=== PATIENT | male | born 1950 | race Caucasian/White ===

== ENCOUNTER → 2016-09-01 | Outpatient (CLI) | payer MEDICARE | LOC: GMAM 17:30 | PROVIDERS: ATTEND Family Medicine | DX: E53.8 Deficiency of other specified B group vitamins (principal); E55.9 Vitamin D deficiency, unspecified; E29.1 Testicular hypofunction; M10.9 Gout, unspecified; R53.83 Other fatigue; Z12.5 Encounter for screening for malignant neoplasm of prostate | CPT/HCPCS: 82306; 82607; 84403; 84550; G0103 ==

== ENCOUNTER → 2016-09-08 | Outpatient (CLI) | payer MEDICARE, OTHER | LOC: SL 21:14 | PROVIDERS: ATTEND Family Medicine | DX: G47.00 Insomnia, unspecified (principal); R06.83 Snoring; E66.9 Obesity, unspecified; I25.9 Chronic ischemic heart disease, unspecified; I10 Essential (primary) hypertension ==

== ENCOUNTER → 2016-10-01 | Outpatient (CLI) | payer MEDICARE, OTHER | END | disposition home or self-care (01) | LOC: SL 20:30 | PROVIDERS: ATTEND Family Medicine | DX: G47.00 Insomnia, unspecified (principal); R06.83 Snoring; I25.9 Chronic ischemic heart disease, unspecified; I10 Essential (primary) hypertension; E66.9 Obesity, unspecified ==

== ENCOUNTER → 2017-09-08 | Outpatient (CLI) | payer MEDICARE, OTHER ==
--- NOTE | 2017-09-08 20:10 | MRI ---
EXAM DESCRIPTION: Lumbar Spine w/o Contrast MRI. CLINICAL HISTORY: SPINAL STENOSIS-LUMBAR COMPARISON: MRI scan lumbar spine 04/28/2016. TECHNIQUE: Multiplanar, multiple standard sequences, non contrast MRI, lumbar spine. FINDINGS: L5-S1: Moderate disc space loss and grade 2 anterolisthesis 1.1 cm. No significant disc bulge posterior to the posterior cortex of S1. Mild canal narrowing. Bilateral moderate foraminal stenosis and impingement of the bilateral L5 nerve roots in the foramina. Bilateral L5 pars spondylolysis with minimal hypertrophy and ligament thickening; no marrow edema abutting the defects. Minimal facet arthrosis and posterior ligament hypertrophy. Modic type II endplate reactive changes. L4-5: Moderate disc space loss posterior. Anterior bulging and endplate ridging. Moderate type II endplate reactive changes and more disc space narrowing to the right of midline. Disc osteophyte complex creating moderate left foraminal narrowing. Trace retrolisthesis. Mild right foraminal narrowing. Minimal posterior ligament hypertrophy bilaterally. Moderate canal narrowing. L3-4 disc desiccation and posterior disc space loss. Moderate flavum ligament hypertrophy and facet arthrosis more on the left. Mild right foraminal narrowing. Moderate left foraminal narrowing. Moderate canal narrowing. Subarticular recess flattening. L2-3: Disc desiccation with anterior bulging. Posterior large Schmorl's node L2 enlarged since the prior study with large surrounding ring of marrow edema. Exterior disc bulge 4 mm. Mild facet and ligament arthrosis and hypertrophy. Mild right foraminal narrowing moderate left foraminal narrowing. Moderate canal narrowing. L1-2: Minimal disc desiccation no bulging. Minimal posterior ligament hypertrophy. Conus terminates at L1. Canal and bilateral foramina are patent. T12-L1: Disc appears physiologic. Posterior elements unremarkable. Canal and foramina are patent. Paravertebral soft tissues show muscle atrophy.. Normal marrow signal in the remaining vertebral bodies and the posterior elements. Vertebral bodies are not compressed at any level. IMPRESSION: 1. Grade 2 anterolisthesis L5-S1 slightly progressed since the prior study. Bilateral foraminal stenosis is also progressed. Bilateral L5 pars spondylolysis again noted. 2. L4-5 disc degeneration with moderate spondylosis encroaching on the left foramen no definite nerve impingement. Trace retrolisthesis. Canal is patent. Stable since the prior study. 3. Enlarging Schmorl's node in surrounding marrow edema inferior L2 endplate abutting the L2-3 disc. Posterior disc bulge showing no significant change. 4. L3-4 midline disc protrusion has decreased since the prior study with less mass effect on the thecal sac. Less canal narrowing compared to the prior study. Electronically signed by: Cedric Keller MD 09/08/2017 8:09 PM [facility] Workstation: [facility]-
== END ==
LOC: MRI 10:00
PROVIDERS: ATTEND Physical Medicine & Rehabilitation
DX: M48.062 Spinal stenosis, lumbar region with neurogenic claudication (principal); M51.36 Other intervertebral disc degeneration, lumbar region; M43.16 Spondylolisthesis, lumbar region

== ENCOUNTER → 2018-01-13 | Outpatient (CLI) | payer MEDICARE, OTHER | LOC: GMAM 14:24 | PROVIDERS: ATTEND Family Medicine | DX: E53.8 Deficiency of other specified B group vitamins (principal); R53.83 Other fatigue; E55.9 Vitamin D deficiency, unspecified; M10.9 Gout, unspecified; Z12.5 Encounter for screening for malignant neoplasm of prostate | CPT/HCPCS: 82306; 82607; 84403; 84443; 84481; 84550; G0103 ==

== ENCOUNTER → 2018-01-18 | Outpatient (CLI) | payer MEDICARE, OTHER | LOC: GMAM 16:35 | PROVIDERS: ATTEND Family Medicine | DX: E55.9 Vitamin D deficiency, unspecified (principal); R10.84 Generalized abdominal pain ==

== ENCOUNTER → 2020-09-17 | Outpatient (CLI) | payer MEDICARE, OTHER | LOC: GMAM 15:17 | PROVIDERS: ATTEND Family Medicine | DX: E55.9 Vitamin D deficiency, unspecified (principal); E53.8 Deficiency of other specified B group vitamins; M10.9 Gout, unspecified; I10 Essential (primary) hypertension; E29.1 Testicular hypofunction ==